=== PATIENT | female | born 1985 | race Caucasian/White ===

== ENCOUNTER 2017-04-14 17:54 | Emergency (ER) | payer OTHER, SELFPAY ==
--- NOTE | 2017-04-14 19:39 | ERPHSYRPT ---
- History of Present Illness Time Seen by Provider: 04/14/17 19:21 Source: patient Exam Limitations: no limitations Patient Subjective Stated Complaint: states has had depression for one year with attempted suicide one year ago. was seen as op at [facility] at that time and has not followed up. reports increased stress at home with and family recently which has caused her to think about harming herself. states she has a plan to take an overdose of pills at home. Triage Nursing Assessment: ambulated to room without difficutly. skin w/d, color normal, resp easy. patient has somewhat flat affect. denies any pain. did become emotional for a few seconds and states "i should have done this a long time ago" in reference to getting help Physician History: FOR THE PAST 2.5 YEARS PT HAS HAD SUICIDAL THOUGHTS AND HAS BEEN HEARING VOICES. PT ATTEMPTED SUICIDE ABOUT 2 YEARS AGO BY TAKING PILLS. PT HAS SEEN A [facility] THERAPIST WITH LAST VISIT 1 YEAR AGO. PT STATES SHE HAS A HX OF DEPRESSION. PT DENIES CHEST PAIN, SHORTNESS OF AIR, FEVER; ADMITS TO CHRONIC ABDOMINAL PAIN FOR YEARS AND CHILLS TODAY. PT STATES HER FATHER HAS SCHIZOPHRENIA. Allergies/Adverse Reactions: azithromycin [From Zithromax] Allergy (Intermediate, Verified 04/14/17 18:21) Rash doxycycline Allergy (Intermediate, Verified 04/14/17 18:21) Rash Home Medications: No Home Meds 1 [facility] UD 08/20/15 [History] Hx Tetanus, Diphtheria Vaccination/Date Given: No Hx Influenza Vaccination/Date Given: No Hx Pneumococcal Vaccination/Date Given: No - Past Medical History Pertinent Past Medical History: Yes Neurological History: No Pertinent History ENT History: No Pertinent History Cardiac History: No Pertinent History Respiratory History: No Pertinent History Endocrine Medical History: No Pertinent History Musculoskeletal History: No Pertinent History GI Medical History: Gallbladder Disease History: No Pertinent History Psycho-Social History: Depression Female Reproductive Disorders: No Pertinent History Other Medical History: Gallbladder removed and left ankle fx. - Past Surgical History Past Surgical History: Yes Neuro Surgical History: No Pertinent History Cardiac: No Pertinent History Respiratory: No Pertinent History Gastrointestinal: Cholecystectomy Genitourinary: No Pertinent History Musculoskeletal: Orthopedic Surgery Female Surgical History: Section - Social History Smoking Status: Current every day smoker How long have you smoked: 10 Exposure to second hand smoke: No Drug Use: none Patient Lives Alone: Yes Significant Family History: no pertinent family hx - Female History Hx Last Menstrual Period: now - Review of Systems Constitutional: Chills, No Fever Respiratory: No Dyspnea Cardiac: No Chest Pain Abdominal/Gastrointestinal: Abdominal Pain (CHRONIC) Neurological: No Headache Psychological: Depression, Suicidal Ideations, Hallucinations (AUDITORY) All Other Systems: Reviewed and Negative - Nursing Vital Signs Nursing Vital Signs: Initial Vital Signs Temperature 97.6 F Temperature Source Oral Pulse Rate 62 Respiratory Rate 16 Blood Pressure [Left Arm] 114/63 Pain Intensity 0 - Physical Exam General Appearance: alert Eyes, Ears, Nose, Throat Exam: TMs normal, pharynx normal, moist mucous membranes Neck Exam: normal inspection Respiratory Exam: lungs clear Cardiovascular Exam: normal heart sounds Gastrointestinal/Abdominal Exam: soft, normal bowel sounds Extremities Exam: normal inspection, No edema Peripheral Pulses: dorsalis-pedis (R): 3+, dorsalis-pedis (L): 3+ Neurological Exam: alert, depressed affect Behavior/Eye Contact/Speech: alert & cooperative, normal speech Thoughts/Hallucinations: auditory hallucinations Skin Exam: warm, dry SpO2 Interpretation: normal SpO2: 96 Oxygen Delivery: Room Air - Course Nursing assessment & vital signs reviewed: Yes Ordered Tests: Active Orders 24 hr Category Date Time Status ACETAMINOPHEN Stat Lab 04/14/17 19:38 Completed AMYLASE Stat Lab 04/14/17 19:38 Completed CBC W DIFF Stat Lab 04/14/17 19:38 Completed CMP Stat Lab 04/14/17 19:38 Completed Ethyl Alcohol,Urine Stat Lab 04/14/17 19:20 Completed HCG QUALITATIVE,SERUM Stat Lab 04/14/17 19:38 Completed LIPASE Stat Lab 04/14/17 19:38 Completed SALICYLATE Stat Lab 04/14/17 19:38 Completed UA W/RFX UR CULTURE Stat Lab 04/14/17 19:20 Completed Urine Triage Profile Stat Lab 04/14/17 19:20 Completed Lab/Rad Data: Laboratory Result Diagrams 04/14/17 19:38 04/14/17 19:38 Laboratory Results 04/14/17 04/14/17 04/14/17 Range/Units 19:38 19:38 19:38 WBC (4.0-10.5) K/mm3 RBC (4.1-5.4) M/mm3 Hgb (12.0-16.0) gm/dl Hct (35-47) % MCV (78-100) fl MCH (26-32) pg MCHC (32-36) g/dl RDW (11.5-14.0) % Plt Count (150-450) K/mm3 MPV (6-9.5) fl Gran % (36.0-66.0) % Lymphocytes % (24.0-44.0) % Monocytes % (0.0-12.0) % Eosinophils % (0.00-5.0) % Basophils % (0.0-0.4) % Basophils # (0-0.4) Sodium 143 (136-145) mEq/L Potassium 3.9 (3.5-5.1) mEq/L Chloride 106 (98-107) mEq/L Carbon Dioxide 28.6 (21-32) mEq/L Anion Gap 12.0 (5-15) MEQ/L BUN 9 (9-20) mg/dL Creatinine 0.74 (0.55-1.30) mg/dl Estimated GFR > 60 ML/MIN Glucose 107 (70-110) MG/DL Calcium 9.1 (8.5-10.1) mg/dL Total Bilirubin 0.30 (0.2-1.0) mg/dL AST 19 (15-37) U/L ALT 39 (12-78) U/L Alkaline Phosphatase 81 (46-116) U/L Serum Total Protein 7.6 (6.4-8.2) gm/dL Albumin 3.7 (3.4-5.0) g/dL Amylase 38 (25-115) U/L Lipase 91 (73-393) U/L Serum , Qual NEGATIVE (Negative) Ur Collection Type Urine Color (YELLOW) Urine Appearance (CLEAR) Urine pH (5-6) Ur Specific Schneider (1.005-1.025) Urine Protein (Negative) Urine Ketones (NEGATIVE) Urine Blood (0-5) Cameron/ul Urine Nitrite (NEGATIVE) Urine Bilirubin (NEGATIVE) Urine Urobilinogen (0-1) mg/dL Ur Leukocyte Esterase (NEGATIVE) Urine Glucose (NEGATIVE) mg/dL Salicylates 3.9 (2.8-20.0) mg/dl Urine Opiates Level (NEGATIVE) Ur Methadone (NEGATIVE) Acetaminophen < 2.0 L (10-30) ug/ml Urine Barbiturates (NEGATIVE) Ur Phencyclidine (PCP) (NEGATIVE) Urine Amphetamine (NEGATIVE) U Benzodiazepine Level (NEGATIVE) Urine Cocaine (NEGATIVE) Urine Marijuana (THC) (NEGATIVE) Urine Ethyl Alcohol (0.00-20) mg/dl Specimen Received 04/14/17 04/14/17 04/14/17 Range/Units 19:38 19:20 19:20 WBC 9.4 (4.0-10.5) K/mm3 RBC 4.39 (4.1-5.4) M/mm3 Hgb 12.5 (12.0-16.0) gm/dl Hct 37.9 (35-47) % MCV 86.3 (78-100) fl MCH 28.5 (26-32) pg MCHC 33.0 (32-36) g/dl RDW 14.3 H (11.5-14.0) % Plt Count 249 (150-450) K/mm3 MPV 10.1 H (6-9.5) fl Gran % 73.2 H (36.0-66.0) % Lymphocytes % 20.2 L (24.0-44.0) % Monocytes % 5.3 (0.0-12.0) % Eosinophils % 1.1 (0.00-5.0) % Basophils % 0.2 (0.0-0.4) % Basophils # 0.02 (0-0.4) Sodium (136-145) mEq/L Potassium (3.5-5.1) mEq/L Chloride (98-107) mEq/L Carbon Dioxide (21-32) mEq/L Anion Gap (5-15) MEQ/L BUN (9-20) mg/dL Creatinine (0.55-1.30) mg/dl Estimated GFR ML/MIN Glucose (70-110) MG/DL Calcium (8.5-10.1) mg/dL Total Bilirubin (0.2-1.0) mg/dL AST (15-37) U/L ALT (12-78) U/L Alkaline Phosphatase (46-116) U/L Serum Total Protein (6.4-8.2) gm/dL Albumin (3.4-5.0) g/dL Amylase (25-115) U/L Lipase (73-393) U/L Serum , Qual (Negative) Ur Collection Type CLEAN CATCH Urine Color STRAW (YELLOW) Urine Appearance CLEAR (CLEAR) Urine pH 5.5 5.5 (5-6) Ur Specific Schneider 1.015 (1.005-1.025) Urine Protein NEGATIVE (Negative) Urine Ketones NEGATIVE (NEGATIVE) Urine Blood NEGATIVE (0-5) Cameron/ul Urine Nitrite NEGATIVE (NEGATIVE) Urine Bilirubin NEGATIVE (NEGATIVE) Urine Urobilinogen NORMAL (0-1) mg/dL Ur Leukocyte Esterase NEGATIVE (NEGATIVE) Urine Glucose NEGATIVE (NEGATIVE) mg/dL Salicylates (2.8-20.0) mg/dl Urine Opiates Level NEG. (NEGATIVE) Ur Methadone NEG. (NEGATIVE) Acetaminophen (10-30) ug/ml Urine Barbiturates NEG. (NEGATIVE) Ur Phencyclidine (PCP) NEG. (NEGATIVE) Urine Amphetamine NEG. (NEGATIVE) U Benzodiazepine Level NEG. (NEGATIVE) Urine Cocaine NEG. (NEGATIVE) Urine Marijuana (THC) POS. (NEGATIVE) Urine Ethyl Alcohol < 3 (0.00-20) mg/dl Specimen Received 04/14/17:1920 - Progress Discussed with Dr.: Other (DR SERRA(PSYCHIATRIST)(MICHAELLE KELLY, INTAKE NURSE)([id number] ) ACCEPTED PT FOR TRANSFER TO [facility] A DIRECT ADMISSION.) - Departure Time of Disposition: 23:02 Departure Disposition: Transfer ([facility]) Clinical Impression: SUICIDAL IDEATION, DEPRESSION Condition: Stable Critical Care Time: No
[2017-04-14 19:46] LABS: ADD URINE CULTURE? NO (NO); Bilirubin NEGATIVE (NEGATIVE); Blood NEGATIVE Ery/ul (0-5); COMPLETE URINE MICROSCOPIC? NO; Collection Type CLEAN CATCH; Glucose NEGATIVE (NEGATIVE); Leukocyte Esterase NEGATIVE (NEGATIVE)
[2017-04-14 19:47] LABS: BASOPHIL % 0.2 % (0.0-0.4); Eosinophil % 1.1 % (0.00-5.0); Granulocytes % 73.2 % (36.0-66.0); Lymphocytes % 20.2 % (24.0-44.0); Mean Cell Volume 86.3 fl (78-100); Mean Corpuscular Hemoglobin 28.5 pg (26-32); Mean Platelet Volume 10.1 fl (6-9.5); Monocytes % 5.3 % (0.0-12.0); Platelet Count 249 K/mm3 (150-450); Red Blood Count 4.39 M/mm3 (4.1-5.4); Red Cell Distribution Width 14.3 % (11.5-14.0); White Blood Count 9.4 K/mm3 (4.0-10.5)
[2017-04-14 19:59] LABS: LIPASE 91 U/L (73-393)
[2017-04-14 20:02] LABS: ALBUMIN 3.7 g/dL (3.4-5.0); ALKALINE PHOSPHATASE 81 U/L (46-116); BLOOD UREA NITROGEN 9 mg/dL (9-20); CHLORIDE 106 mEq/L (98-107); Carbon Dioxide 28.6 mEq/L (21-32); Glucose 107 MG/DL (70-110); Potassium 3.9 mEq/L (3.5-5.1); SGOT/AST 19 U/L (15-37); SGPT/ALT 39 U/L (12-78); SODIUM 143 mEq/L (136-145); Total Protein 7.6 gm/dL (6.4-8.2)
[2017-04-14 20:04] LABS: ACETAMINOPHEN < 2.0 ug/ml (10-30)
[2017-04-14 22:52] VITALS: BP 114/63; PULSE 62
[2017-04-14 23:03] VITALS: O2SAT 96
== END 2017-04-15 00:02 | disposition short-term general hospital (02) ==
LOC: ED 17:54
DX: R45.851 Suicidal ideations (principal); F32.9 Major depressive disorder, single episode, unspecified; K82.9 Disease of gallbladder, unspecified
CPT/HCPCS: 36415; 80053; 80307; 80320; 81002; 82150; 83690; 83986; 84703; 85025; 99285; G0481

== ENCOUNTER 2018-07-10 19:24 | Emergency (ER) | payer OTHER, SELFPAY ==
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
[2018-07-10] MEDS ORDERED: TORAdol 30 mg Injection IM ONE (22:47)
[2018-07-10] MEDS ORDERED: TORAdol 30 mg Injection ONE (23:01)
[2018-07-10 23:31] VITALS: BP 131/86; PULSE 102; O2SAT 98
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
== END 2018-07-10 23:31 | disposition home or self-care (01) ==
LOC: ED 19:24
DX: S00.03XA Contusion of scalp, initial encounter (principal); R51 Headache; Y04.0XXA Assault by unarmed brawl or fight, initial encounter; Y92.009 Unspecified place in unspecified non-institutional (private) residence as the place of occurrence of the external cause
CPT/HCPCS: 70450; 96372; 99284; J1885

== ENCOUNTER 2019-12-24 07:18 | Emergency (ER) | payer MEDICAID, OTHER ==
--- NOTE | 2019-12-24 07:49 | ERPHSYRPT ---
- History of Present Illness Time Seen by Provider: 12/24/19 07:36 Source: patient Exam Limitations: no limitations Patient Subjective Stated Complaint: pt here for vomiting, and chills since last night,she also has a child sick at home, no fever, vomited less tahn 10 times Triage Nursing Assessment: pt alert, resp easy, skin w/d/p , abd soft Physician History: The patient is a 34-year-old female who presents with a chief complaint of nausea and vomiting that started this morning around 2 AM. She endorsed having nonbloody/nonbilious vomiting since that time in addition to nonbloody diarrhea. She says she feels fatigue and has had chills but denies any fever, cough, rhinorrhea, sore throat, dyspnea, chest pain and abdominal pain. The patient denies symptoms consistent with a UTI. Of note, the patient brought her daughter to the emergency department last night for similar symptoms and her daughter reportedly was diagnosed with influenza A. The patient has not taken anything for her symptoms today and reportedly went to work and had to leave because of her symptoms. The patient reportedly works at a [employer]. Allergies/Adverse Reactions: azithromycin [From Zithromax] Allergy (Intermediate, Verified 12/24/19 07:28) Rash doxycycline Allergy (Intermediate, Verified 12/24/19 07:28) Rash Home Medications: clonazePAM [Klonopin] 0.5 mg PO BID PRN 07/10/18 [History] Hx Tetanus, Diphtheria Vaccination/Date Given: No Hx Influenza Vaccination/Date Given: No Hx Pneumococcal Vaccination/Date Given: No Immunizations Up to Date: Yes - Review of Systems Constitutional: Chills, Fatigue Eyes: No Symptoms Ears, Nose, & Throat: No Symptoms Respiratory: No Cough, No Dyspnea, No Dyspnea on Exertion ([place]), No Stridor Cardiac: No Chest Pain, No Palpitations, No Syncope Abdominal/Gastrointestinal: Nausea, Vomiting, Diarrhea, No Abdominal Pain, No Constipation, No Hematemesis, No Hematochezia, No Melena, No Dysphagia Genitourinary Symptoms: No Symptoms Musculoskeletal: No Symptoms Skin: No Symptoms Neurological: No Symptoms Psychological: No Symptoms Endocrine: No Symptoms Hematologic/Lymphatic: No Symptoms All Other Systems: Reviewed and Negative - Past Medical History Pertinent Past Medical History: No Neurological History: No Pertinent History ENT History: No Pertinent History Cardiac History: No Pertinent History Respiratory History: No Pertinent History Endocrine Medical History: No Pertinent History Musculoskeletal History: No Pertinent History GI Medical History: Gallbladder Disease History: No Pertinent History Psycho-Social History: Depression Female Reproductive Disorders: No Pertinent History Other Medical History: Gallbladder removed and left ankle fx. - Past Surgical History Past Surgical History: Yes Neuro Surgical History: No Pertinent History Cardiac: No Pertinent History Respiratory: No Pertinent History Gastrointestinal: Cholecystectomy Genitourinary: No Pertinent History Musculoskeletal: Orthopedic Surgery Female Surgical History: Dilation & Curettage, Section Other Surgical History: ankle - Social History Smoking Status: Never smoker How long have you smoked: 10 Exposure to second hand smoke: No Drug Use: none Patient Lives Alone: No Significant Family History: no pertinent family hx - Female History Hx Last Menstrual Period: 2 weeks ago Hx Now: No - Nursing Vital Signs Nursing Vital Signs: Initial Vital Signs Temperature 98.0 F 12/24/19 07:23 Pulse Rate 82 12/24/19 07:23 Respiratory Rate 18 12/24/19 07:23 Blood Pressure 151/84 12/24/19 07:23 O2 Sat by Pulse Oximetry 99 12/24/19 07:23 Pain Scale Pain Intensity 0 - Physical Exam General Appearance: no apparent distress, alert Eye Exam: PERRL/EOMI Neck Exam: normal inspection, non-tender, supple Respiratory Exam: normal breath sounds, lungs clear, airway intact, No chest tenderness, No respiratory distress, No diminished breath sounds, No accessory muscle use Cardiovascular Exam: regular rate/rhythm, normal heart sounds, normal peripheral pulses, capillary refill <2 sec, No murmur, No friction rub, No gallop, No tachycardia, No edema Gastrointestinal/Abdomen Exam: soft, No tenderness, No distention, No mass, No guarding Pelvic Exam: not done Rectal Exam: deferred Back Exam: normal inspection Extremity Exam: normal inspection Neurologic Exam: alert, oriented x 3 Skin Exam: normal color, warm, dry, No rash, No petechiae, No jaundice SpO2 Interpretation: normal SpO2: 99 O2 Delivery: Room Air - Course Nursing assessment & vital signs reviewed: Yes Ordered Tests: Active Orders 24 hr Category Date Time Status HCG,QUALITATIVE URINE Stat Lab 12/24/19 08:00 Completed UA W/RFX UR CULTURE Stat Lab 12/24/19 08:00 Completed Medication Summary Discontinued Medications Generic Name Dose Route Start Last Admin Trade Name Freq PRN Reason Stop Dose Admin Ondansetron HCl 4 mg 12/24/19 07:49 12/24/19 07:57 Zofran Odt 4 Mg PO 12/24/19 07:50 4 mg STAT ONE Administration Ondansetron HCl Confirm 12/24/19 07:56 Zofran Odt 4 Mg Administered 12/24/19 07:57 Dose 4 mg .ROUTE .K-MED ONE Lab/Rad Data: Laboratory Results 12/24/19 12/24/19 12/24/19 Range/Units 08:00 08:00 08:00 Urine Color YELLOW (YELLOW) Urine Appearance CLOUDY (CLEAR) Urine pH 7.0 (5-6) Ur Specific [place] 1.018 (1.005-1.025) Urine Protein NEGATIVE (Negative) Urine Ketones NEGATIVE (NEGATIVE) Urine Blood NEGATIVE (0-5) Cameron/ul Urine Nitrite NEGATIVE (NEGATIVE) Urine Bilirubin NEGATIVE (NEGATIVE) Urine Urobilinogen NEGATIVE (0-1) mg/dL Ur Leukocyte Esterase NEGATIVE (NEGATIVE) Urine WBC (Auto) 3-5 (0-5) /HPF Urine RBC (Auto) NONE (0-2) /HPF U Epithel Cells (Auto) RARE (FEW) /HPF Urine Bacteria (Auto) RARE (NEGATIVE) /HPF Amorphous Crystals MODERATE (NEGATIVE) /HPF Urine Mucus (Auto) SLIGHT (NEGATIVE) /HPF Urine Culture Reflexed NO (NO) Urine Glucose NEGATIVE (NEGATIVE) mg/dL Urine HCG, Qual NEGATIVE (Negative) Influenza Type A Ag NEGATIVE (NEGATIVE) Influenza Type B Ag NEGATIVE (NEGATIVE) RSV (PCR) NEGATIVE (Negative) - Progress Progress: improved, re-examined Progress Note: 12/24/19 08:20 The patient nontoxic in appearance, afebrile appears to be well-hydrated. She had no complaint of abdominal pain and her abdominal exam was relatively benign , specifically with no right lower quadrant tenderness to suggest appendicitis. Her remaining exam was also benign. Her symptoms seem to be consistent with a viral enteritis at this time and may be secondary to flu although she does like respiratory symptoms. Regardless, because the patient had a known flu contact I will go ahead and test and offer treatment if she is positive, specifically with Tamiflu. At this time, I will obtain a screening UA to eval for evidence of ketones and glucose which may suggest possible DKA or undiagnosed diabetes as the cause of her symptoms or dehydration. UPT will also screen for as the cause of her symptoms as well. Otherwise, I will treat the patient conservatively with ODT Zofran and push oral fluids and if her work-up is relatively benign I will discharge her home with a work note for 48 hours in addition to a prescription for Zofran as well as antibiotics for flu if she test positive. 12/24/19 09:02 Patient's work-up was negative. She will be discharged with Zofran and a work excuse as planned. - Departure Departure Disposition: Home Clinical Impression: Nausea and vomiting, Diarrhea, Gastroenteritis Condition: Stable Critical Care Time: No Referrals: UZAIR CARBALLO [Primary Care Provider] - Instructions: Nausea -- Adult, Vomiting -- Adult, Viral Gastroenteritis Forms: Work/School Release Form
[2019-12-24] MEDS ORDERED: ZOFRAN ODT 4 MG ONE (07:56)
[2019-12-24] MEDS: ZOFRAN ODT 4 MG PO ONE (07:57)
[2019-12-24 08:14] LABS: Amourphous Crystal MODERATE /HPF (NEGATIVE); Appearance CLOUDY (CLEAR); Bacteria RARE /HPF (NEGATIVE); Bilirubin NEGATIVE (NEGATIVE); Blood NEGATIVE Ery/ul (0-5); Epithelial Cells RARE /HPF (FEW); Glucose NEGATIVE (NEGATIVE); Ketones NEGATIVE (NEGATIVE); Leukocyte Esterase NEGATIVE (NEGATIVE); Mucus SLIGHT /HPF (NEGATIVE); Nitrite NEGATIVE (NEGATIVE); Protein,Urine Dip NEGATIVE (Negative); Specific Gravity 1.018 (1.005-1.025); Urobilinogen NEGATIVE mg/dL (0-1)
[2019-12-24 08:46] LABS: INFLUENZA A NEGATIVE (NEGATIVE); INFLUENZA B NEGATIVE (NEGATIVE); RESPIRATORY SYNCTIAL VIRUS NEGATIVE (Negative)
[2019-12-24 09:38] VITALS: BP 131/79; PULSE 78; O2SAT 98
== END 2019-12-24 09:38 | disposition home or self-care (01) ==
LOC: ED 07:18
DX: R11.2 Nausea with vomiting, unspecified (principal); R19.7 Diarrhea, unspecified; K52.9 Noninfective gastroenteritis and colitis, unspecified
CPT/HCPCS: 81001; 84703; 87631; 99283; Q0162